=== PATIENT | female | born 1940 | race Caucasian/White ===

== ENCOUNTER → 2016-09-01 | Outpatient (CLI) | payer OTHER | LOC: FIMAGING 13:52 | PROVIDERS: ATTEND Internal Medicine | DX: Z12.31 Encounter for screening mammogram for malignant neoplasm of breast (principal) | CPT/HCPCS: G0202 ==

== ENCOUNTER 2017-04-27 10:50 | Day surgery (SDC) | payer OTHER ==
[2017-04-27] MEDS ORDERED: LIDOCAINE 1% 2 ML INJ ONE (10:58)
[2017-04-27] MEDS ORDERED: LIDOCAINE 1% 2 ML INJ ID PRN (11:09)
[2017-04-27] MEDS ORDERED: NS 500 ML IV ONE (11:09)
[2017-04-27 11:45] VITALS: TEMP 97.5
[2017-04-27] MEDS ORDERED: MIDAZOLAM 2 MG/2 ML VIAL ONE (12:04)
[2017-04-27] MEDS ORDERED: fentaNYL 100 MCG/2 ML INJ ONE (12:05)
--- NOTE | 2017-04-27 12:17 | PDGENHP ---
History & Physical Chief Complaint: phx polyps History of Present Illness: phx polyps Pertinent Past, Social, Family History: no tobacco quit in 1964. rare alcohol. FHx - no colon polyps or cancer Relevant Physical Exam: A+Ox3. CTA. S1S2, RRR. +Bs, soft NT Cardiorespiratory Assessment: class 2
--- NOTE | 2017-04-27 12:18 | PDPROPOC ---
Sedation Plan of Care Sedation Plan of Care: vital signs stable, mental status noted, patient educated of risks, benefits, alternatives, patient can tolerate sedation ASA Classification: ASA 2 Planned drugs: fentanyl, midazolam Mallampati Score: Class 2 Mallampati Reference Image: Patient passed 3-3-2 rule?: Yes
[2017-04-27] MEDS ORDERED: FLUMAZENIL 0.5 MG/5 ML MDV IVP ONE (12:26)
[2017-04-27] MEDS ORDERED: NALOXONE HCL 0.4 MG/ML INJ ONE (12:26)
[2017-04-27 13:17] VITALS: PULSE 68
--- NOTE | 2017-04-27 13:31 | GIREPORT ---
[facility] Surgical Services - Endoscopy Department Patient Name: Anastasiia Carson Procedure Date: 04/27/2017 12:14 PM Patient Type: Outpatient Attending MD/ ER Physician: Huma Goldman Procedure: Colonoscopy Indications: Surveillance: Piecemeal removal of large sessile adenoma last colonosco py (< 3 yrs) Providers: Sathish Taylor MD Medicines: Fentanyl 100 micrograms IV, Midazolam 4.5 mg IV Complications: No immediate complications. Estimated blood loss: Minimal. Description of Procedure: After obtaining informed consent, the scope was passed under direct vis ion. Throughout the procedure, the patient's blood pressure, pulse, and oxyg en saturations were monitored continuously. The Colonoscope with irrigatio n channel was introduced through the anus and advanced to the terminal il eum, with identification of the appendiceal orifice and IC valve. The colono scopy was performed without difficulty. The patient tolerated the procedure w ell. The quality of the bowel preparation was good. Findings: The digital rectal exam was normal. The terminal ileum appeared normal. An area of mildly mucosa was found in the transverse colon. Biopsies we re taken with a cold forceps for histology. Estimated blood loss was minim al. Coagulation for tissue destruction using argon plasma was successful. Estimated blood loss: none. This is the previous polypectomy site. Multiple small and large-mouthed diverticula were found in the sigmoid colon, descending colon and transverse colon. There was evidence of a prior end-to-side colo-colonic anastomosis in t he distal transverse colon. This was patent and was characterized by healt hy appearing mucosa. The anastomosis was traversed. The exam was otherwise without abnormality. Estimated Blood Loss: Estimated blood loss was minimal. Post Op Diagnosis: - The examined portion of the ileum was normal. - Mucosa in the transverse colon. Biopsied. Treated with argon plasma coagulation (APC). Area of previous polypectomy site. - Diverticulosis in the sigmoid colon, in the descending colon and in t he transverse colon. - Patent end-to-side colo-colonic anastomosis, characterized by healthy appearing mucosa. - The examination was otherwise normal. Recommendation: - Await pathology results. - My office will call with the pathology result with 5-7 days. If you h ave not heard from my office by 12-14, do not assume the pathology is christine l, please call [phone] to get the pathology results. - Repeat colonoscopy date to be determined after pending pathology resu lts are reviewed for surveillance based on pathology results. If no polyp tissue, then 3 years. If polyp tissue then 1-2 years. - High fiber diet indefinitely. - 30-35 grams of dietary fiber per day. Can use supplemental fiber. - A high fiber diet may decrease risk of complications from diverticulo sis. There is no need to avoid seeds or nuts. - Patient has a contact number available for emergencies. The signs and symptoms of potential delayed complications were discussed with the pat ient. Return to normal activities tomorrow. Written discharge instructions we re provided to the patient. - Continue present medications. - Avoid Aspirin and NSAID's for 7-10 days except as used for cardiac or stroke prevention. - Discharge patient to home (ambulatory). - Return to primary care physician as previously scheduled. - Thank you for allowing me to help in your patient's care. Do not hesi chin to call with any questions. Attending Participation: I personally performed the entire procedure. Brandon Bower M.D Sathish Taylor MD 04/27/2017 1:31:23 PM This report has been signed electronicallyMathew MD Brandon Number of Addenda: 0 Note Initiated On: 04/27/2017 12:14 PM Total Procedure Duration Time 0 hours 26 minutes 47 seconds [email or web address]
[2017-04-27 13:47] VITALS: BP 106/57; RESP 12; O2SAT 93
== END 2017-04-27 14:10 | disposition home or self-care (01) ==
LOC: FSGY 10:50
PROVIDERS: ATTEND Internal Medicine Gastroenterology
PROC: 0DBL8ZX Excision of Transverse Colon, Via Natural or Artificial Opening Endoscopic, Diagnostic (ICD-10-PCS; principal; 2017-04-27 12:00)
DX: K57.30 Diverticulosis of large intestine without perforation or abscess without bleeding (principal); Z86.010 Personal history of colon polyps
CPT/HCPCS: J2250; J2310; J3010